=== PATIENT | female | born 1960 | race African-American/Black ===

== ENCOUNTER 2019-09-28 13:39 | Emergency (ER) | payer OTHER ==
[~2019-09-28] VITALS: Ht 162.6 cm; Wt 91.2 kg
[~2019-09-28 13:39] MED LIST: FLEXERIL PO; NORVASC2.5 MG PO; ONDANSETRON HCL4 M2 PO
[2019-09-28] MEDS ORDERED: MEDROLDOSEPACK PO (15:42)
[2019-09-28] MEDS ORDERED: CYCLOBENZAPRINE5 MG PO (15:42)
[2019-09-28] MEDS ORDERED: NORCO 10-325 T1 EACH PO (15:42)
[2019-09-28 16:08] VITALS: BP 115/74
== END 2019-09-28 16:13 | disposition home or self-care (01) ==
LOC: ER 13:39
DX: M51.26 Other intervertebral disc displacement, lumbar region (principal); M25.551 Pain in right hip; G89.29 Other chronic pain; F17.210 Nicotine dependence, cigarettes, uncomplicated; Z88.6 Allergy status to analgesic agent; Z88.8 Allergy status to other drugs, medicaments and biological substances